=== PATIENT | male | born 1980 | race Caucasian/White ===

== ENCOUNTER 2021-02-19 20:50 | Emergency (ER) | payer OTHER ==
[2021-02-19 21:07] VITALS: BP 155/98; PULSE 65; TEMP 98.5; BMI 26.1
== END 2021-02-19 22:52 | disposition home or self-care (01) ==
LOC: JER 20:50
DX: U07.1 COVID-19 (principal)
CPT/HCPCS: 71045-TC-FY; 99283-25

== ENCOUNTER 2022-06-30 04:07 | Day surgery (SDC) | payer BC, OTHER ==
[2022-06-25 15:50] VITALS: BMI 27.0
[2022-06-30] MEDS ORDERED: PROPOFOL 40 ML ONE (10:53)
[2022-06-30] MEDS ORDERED: MIDAZOLAM HCL 2 MG/2 ML SINGLE DOSE VIAL ONE ×3 (10:53→13:42)
[2022-06-30] MEDS ORDERED: ACETAMINOPHEN 500 MG TABLET (FP) PO PRN (14:02)
[2022-06-30] MEDS ORDERED: oxyCODONE HCL 5 MG TABLET PO PRN (14:02)
[2022-06-30 15:13] VITALS: TEMP 97.8
[2022-06-30 15:23] VITALS: RESP 18
[2022-06-30 15:47] VITALS: BP 129/72; PULSE 67
== END 2022-06-30 15:55 | disposition home or self-care (01) ==
LOC: JASU-SURG 04:07
PROVIDERS: ATTEND Urology
PROC: 0TF3XZZ Fragmentation in Right Kidney Pelvis, External Approach (ICD-10-PCS; principal; 2022-06-30 11:00)
DX: N20.0 Calculus of kidney (principal)
CPT/HCPCS: 94760

== ENCOUNTER 2022-09-08 04:13 | Day surgery (SDC) | payer BC, OTHER ==
[2022-09-02 10:35] VITALS: BMI 27.0
[2022-09-08] MEDS ORDERED: MIDAZOLAM HCL 2 MG/2 ML SINGLE DOSE VIAL ONE (07:35)
[2022-09-08] MEDS ORDERED: PROPOFOL 20 ML ONE (07:35)
[2022-09-08] MEDS ORDERED: ACETAMINOPHEN INJECTION 100 ML IVPB ONE (08:21)
[2022-09-08 11:09] VITALS: RESP 20; TEMP 97.8
[2022-09-08 11:14] VITALS: BP 128/89; PULSE 70
== END 2022-09-08 10:30 | disposition home or self-care (01) ==
LOC: JASU-SURG 04:13
PROVIDERS: ATTEND Urology
PROC: 0TF3XZZ Fragmentation in Right Kidney Pelvis, External Approach (ICD-10-PCS; principal; 2022-09-08 08:00)
DX: N20.0 Calculus of kidney (principal)